=== PATIENT | female | born 1980 | race Caucasian/White ===

== ENCOUNTER 2017-05-25 12:25 | Emergency (ER) | payer MEDICAID ==
[~2017-05-25] VITALS: Ht 160 cm; Wt 45.4 kg
[2017-05-25 12:57] VITALS: BP 141/89
== END 2017-05-25 13:18 | disposition home or self-care (01) ==
LOC: ER 12:25
DX: N39.0 Urinary tract infection, site not specified (principal)

== ENCOUNTER 2018-02-02 16:22 | Emergency (ER) | payer MEDICAID ==
[~2018-02-02] VITALS: Ht 160 cm; Wt 45.4 kg
[2018-02-02 16:45] VITALS: BP 130/79
[2018-02-02 17:18] LABS: Basophils # (auto) 0 uL; Basophils % (auto) 0.5 % (0.0-2.0); Eosinophils # (auto) 0 uL; Eosinophils % (auto) 0.2 % (0.0-7.0); Hematocrit 44.6 % (36.0-46.0); Hemoglobin 15.5 g/dL (12.2-16.2); Lymphocytes # (auto) 2.6 uL; Lymphocytes % (auto) 45.5 % (10.0-50.0); Mean Corpuscular Hemoglobin 32.5 pg (28.0-32.0); Mean Corpuscular Hgb Conc. 34.8 g/dL (32.0-36.0); Mean Corpuscular Volume 93.6 fL (80.0-100.0); Monocytes # (auto) 0.5 uL; Monocytes % (auto) 9.1 % (0.0-12.0); Neutrophils # (auto) 2.5 uL; Neutrophils % (auto) 44.7 % (37.0-80.0); Nucleated Red Blood Cells % 0.3 %; Platelet Count (auto) 173 10^3/uL (140-450); Red Blood Cells 4.77 10^6/uL (4.0-5.20); Red Cell Distribution Width 12.4 % (11.8-14.3); White Blood Cell 5.7 10^3/uL (4.4-10.8)
[2018-02-02 17:36] LABS: Acetaminophen < 2.0 ug/mL (10-30); Salicylate 2.1 mg/dL (2.8-20.0)
[2018-02-02 17:38] LABS: Albumin 4.3 g/dL (3.4-5.0); BUN/Creatinine Ratio 7.4; Calcium 9.2 mg/dL (8.5-10.1); Potassium 3.9 mmol/L (3.5-5.1); Total Protein 7.3 g/dL (6.4-8.2)
[2018-02-02 17:40] LABS: Bilirubin, Total 0.7 mg/dL (0.2-1.0)
== END 2018-02-02 23:00 | disposition left against medical advice (07) ==
LOC: ER 16:22
DX: Z02.89 Encounter for other administrative examinations (principal); Z53.21 Procedure and treatment not carried out due to patient leaving prior to being seen by health care provider
CPT/HCPCS: 36415; 80053; 80329; 85025